=== PATIENT | male | born 1945 | race Caucasian/White ===

== ENCOUNTER 2021-07-08 09:43 | Day surgery (SDC) | payer MEDICARE, BC ==
[2021-07-08] MEDS ORDERED: Acetaminophen 500 MG Tab PO ONE (10:00)
[2021-07-08] MEDS ORDERED: fentaNYL 100 MCG/2 ML SDV ONE (10:10)
[2021-07-08] MEDS ORDERED: Propofol 200 MG/20 ML SDV ONE ×4 (10:10→12:58)
[2021-07-08] MEDS ORDERED: Midazolam 1 MG/ML 2 ML SDV ONE (10:10)
[2021-07-08] MEDS ORDERED: Dextrose 5%-Lactated Ringers 1,000 ML IV SCH (10:15)
[2021-07-08] MEDS: Bupivacaine 0.5% 50 ML MDV ONE ×3 (10:33→12:04)
[2021-07-08] MEDS: Lidocaine 1% with EPINEPHrine 1:100,000 50 ML MDV ONE ×3 (10:33→12:04)
[2021-07-08] MEDS ORDERED: ceFAZolin 2 GM in Premix Bag 1 BAG IV ONE (11:00)
[2021-07-08] MEDS ORDERED: Ketorolac 30 MG/ML SDV ONE (11:45)
[2021-07-08] MEDS ORDERED: Glycopyrrolate 0.2 MG/ML 5 ML MDV ONE (12:15)
[2021-07-08] MEDS ORDERED: oxyCODONE 5 MG Tab PO PRN (14:52)
== END 2021-07-08 16:15 | disposition home or self-care (01) ==
LOC: JP.SDS 09:43
PROVIDERS: ATTEND Surgery
DX: K40.00 Bilateral inguinal hernia, with obstruction, without gangrene, not specified as recurrent (principal); E78.5 Hyperlipidemia, unspecified; I10 Essential (primary) hypertension; K21.9 Gastro-esophageal reflux disease without esophagitis; F41.9 Anxiety disorder, unspecified; Z88.2 Allergy status to sulfonamides
CPT/HCPCS: A9270-GY; C1713; C1781; J0690; J1885; J2020; J2250; J2704; J3010; J3490; J7121

== ENCOUNTER → 2023-10-01 | Day surgery (SDC) | payer MEDICARE, BC ==
[~2023-10-01] MED LIST: Propofol 200 MG/20 ML SDV ONE; fentaNYL 100 MCG/2 ML SDV ONE
[2023-10-01] MEDS: Sodium Chloride 0.9% 1,000 ML IV SCH (08:18)
== END ==
LOC: JP.SDS 07:56
PROVIDERS: ATTEND Surgery
DX: Z12.11 Encounter for screening for malignant neoplasm of colon (principal); K57.30 Diverticulosis of large intestine without perforation or abscess without bleeding; K21.9 Gastro-esophageal reflux disease without esophagitis; Z80.0 Family history of malignant neoplasm of digestive organs
CPT/HCPCS: J2704; J3010; J7030